=== PATIENT | female | born 1955 | race Caucasian/White ===

== ENCOUNTER 2019-05-29 14:53 | Emergency (ER) | payer BC, OTHER ==
--- OUTSIDE RECORDS SUMMARY | 2019-05-29 14:56 | XMS REPORT ---
:1955 [facility] [address] [place] [id number] Care Team Providers Name Role Phone Unavailable Unavailable Unavailable Problems This patient has no known problems. Allergies, Adverse Reactions, Alerts This patient has no known allergies or adverse reactions. Medications This patient has no known medications. Results Test Description Test Time Test Comments Text Results Atomic Results Result Comments CT NECK SOFT TIS 2018-04-04 13:03:41 CLINICAL INDICATION: E21.2 Other WO/W hyperparathyroidismMODALITY: [employer] [address] (Iterative dose reduction technique is used).TECHNIQUE: Noncontrast and contrast enhanced helical scans through the neck from the skull base to the thoracic inlet were performed. IV contrast, 90 ml optiray 350 was administered.IMPRESSION:1. Small ovoid hypervascular nodule in the right paratracheal region just inferior and posterior to the inferior edge of the right lobe of the thyroid suggesting a parathyroid adenoma.2. Small right lobe of thyroid nodule measuring 5 mm.3. Mild medial position of the left aryepiglottic fold and enlargement of the left piriform sinus which can be seen with left vocal cord weakness or paralysis. Correlation with direct visualization is suggested.4. Atheromatous plaque of the left internal carotid artery without evidence of hemodynamically significant stenosis.FINDINGS:COMPARISON: NoneThe release coordinator spaces, parapharyngeal spaces, base of tongue, epiglottis, and pre-epiglottic are unremarkable. Mild medial position of the left aryepiglottic fold suggesting mild left vocal cord paralysis in the proper clinical setting.The major salivary glands including parotid and submandibular glands are normal.There is a right lobe of thyroid nodule measuring 6 mm.There is a small nodule measuring 5 x 3 x 8 mm in the right paratracheal region along the posterior margin of the right lobe of the thyroid which may represent a parathyroid adenoma in the proper clinical setting.There is no significant adenopathy in the neck, supraclavicular fossa, axilla or superior mediastinum.Anterior plate and screws within intervertebral disc spacer at C5-6.The visualized skull base is intact. Posterior atelectasis of the lung apices appearThe visualized paranasal sinuses and mastoid air cells are clear.PQRS 436: [id number] (For official use only.)
--- NOTE | 2019-05-29 16:30 | RAD REPORT ---
EXAM DESCRIPTION: RAD - Humerus Left - 05/29/2019 4:18 pm CLINICAL HISTORY: Left arm pain FINDINGS: No fracture is seen. No bony abnormality noted
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
[2019-05-29 17:51] VITALS: TEMP 97.3; O2SAT 100
[2019-05-29 17:52] VITALS: BP 130/72
== END 2019-05-29 16:54 | disposition home or self-care (01) ==
LOC: ER 14:53
DX: M79.622 Pain in left upper arm (principal)
CPT/HCPCS: 99283

== ENCOUNTER 2022-08-27 11:45 | Emergency (ER) | payer OTHER, MEDICARE ==
--- OUTSIDE RECORDS SUMMARY | 2022-08-27 11:50 | XMS REPORT | Continuity of Care Document ---
:1955 Author Organization [facility] t Address [address] [place] [address] Care Team Providers Name Role Phone Davian Hopson Primary Care Physician Lina HERNANDEZ, Yudith Camargo Attending Clinician Unavailable SEEMA NICK Attending Clinician Unavailable Jaylyn Howard Attending Clinician Seema Vora Attending Clinician Karen Hall Attending Clinician Doctor Unassigned, [place] Attending Clinician Unavailable KAREN SU Attending Clinician Unavailable ZEFERINO VINSON Attending Clinician Unavailable ERIC JOSE Attending Clinician Unavailable AVERY CARIAS Attending Clinician Unavailable Payers Payer Name Policy Type Policy Number Effective Date Expiration Date S bro[place] [facility] - [id number] 2018 00:00:00 OUT OF STATE Problems Condition Condition Condition Status Onset Resolution Last Treating Co mments Source Name Details Category Date Date Treatment Clinician Date 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 00:00: Hospita 00 l Left upper Left upper Disease Active M ethodi quadrant quadrant 2-07 st abdominal abdominal 00:00: Hosp sammy tenderness tenderness 00 l Chest pain Chest pain Disease Active 2013- U nivers 2-10 ity of 00:00: [address] Depression Depression Disease Active U nivers ity [facility] Hypothyroi Hypothyroi Disease Active U nivers dism dism ity of [facility] Hyperlipid Hyperlipid Disease [facility] Allergies, Adverse Reactions, Alerts Allergy Allergy Status Severity Reaction(s) Onset Inactive Treating Comm ents Source Name Type Date Date Clinician NO KNOWN Drug Active Univers ALLERGIE Class ity of [facility] Family History Family Member Diagnosis Comments Start Date Stop Date Source Natural father Heart disease [facility] Natural mother Arthritis [facility] Natural mother Heart disease [facility] Natural sister Breast cancer [facility] Social History Social Habit Start Date Stop Date Quantity Comments Source Exposure to Not sure [facility]-CoV-2 [facility] (event) Branch History SDHI Yarsanism Alcohol Std Hospital Drinks History SDHI Yarsanism Alcohol Binge Hospital Tobacco use and 2020-05-19 2020-05-19 Smokeless tobacco [facility] exposure 00:00:00 00:00:00 non-user Hospital Alcohol intake 2020-05-19 2020-05-19 Current Yarsanism 00:00:00 00:00:00 non-drinker of Hospital alcohol (finding) History SDOH 2018-09-05 2018-09-05 1 Yarsanism Alcohol Frequency 00:00:00 00:00:00 Hospita l Sex Ass[birth year] At [birth year] Yarsanism 00:00:00 00:00:00 Hospital Smoking Status Start Date Stop Date Source Never smoker [facility] Medications Ordered Filled Start Stop Current Ordering Indication Dosage Frequency Signature Comments Components Source Medication Medication Date Date Medication? Clinician (SIG) Name Name albuterol 2021- No [id number] 2.5mg Inhale 3 Univers 2.5 mg /3 1-20 02-20 mL every 4 ity of mL (0.083 00:00: 05:59 (four) [place] %) 00 :00 hours as Medical nebulizer needed for Bran ch solution Wheezing, Shortness of Breath or Chest tightness for up to 30 days. albuterol 2021- No [id number] 2.5mg Inhale 3 Univers 2.5 mg /3 1-20 02-20 mL every 4 ity of mL (0.083 00:00: 05:59 (four) [place] %) 00 :00 hours as Medical nebulizer needed for Bran ch solution Wheezing, Shortness of Breath or Chest tightness for up to 30 days. albuterol 2021- No [id number] 2.5mg Inhale 3 Univers 2.5 mg /3 1-20 02-20 mL every 4 ity of mL (0.083 00:00: 05:59 (four) [place] %) 00 :00 hours as Medical nebulizer needed for Bran ch solution Wheezing, Shortness of Breath or Chest tightness for up to 30 days. albuterol 2021- No [id number] 2{puff} Inhale 2 Univers 90 1-20 -31 Puffs ity of mcg/actuati 00:00: 05:59 [place] 6 [place] inhaler 00 :00 (six) Medical hours as Branch needed for Wheezing or Shortness of Breath for up to 10 days. albuterol 2021- No [id number] 2{puff} Inhale 2 Univers 90 1-20 -31 Puffs ity of mcg/actuati 00:00: 05:59 [place] 6 [place] inhaler 00 :00 (six) Medical hours as Branch needed for Wheezing or Shortness of Breath for up to 10 days. albuterol 2021- No [id number] 2{puff} Inhale 2 Univers 90 1-20 -31 Puffs ity of mcg/actuati 00:00: 05:59 every 6 [place] inhaler 00 :00 (six) Medical hours as Branch needed for Wheezing or Shortness of Breath for up to 10 days. METHYLPREDN 2021- No Take by Un oswald ISOLONE 1-10 01-10 mouth. ity of (MEDROL 14:39: 00:00 Indication [place] as ORAL) 29 :00 s: dose Medical pack, for Branch back pain/blugi ng discs ESTRADIOL Yes Take by Unive rs ORAL 1-10 mouth. ity of 14:25: [place] 52 Medical Branch escitalopra Yes 20mg Take 20 mg Univers m oxalate 1-10 by mouth ity of (LEXAPRO) 14:25: daily. [place] 20 mg 52 Medical tablet Branch levothyroxi Yes 25ug Take 25 Uni vers ne 1-10 mcg by ity of (UNITHROID) 14:25: mouth [place] 25 mcg 52 every Medical tablet morning. Branch estradioL 0 Yes 1{patch Apply 1 Un oswald 0.025 mg/24 1-10 } Patch to ity of hr patch 14:25: skin 2 [place] [address] (two) Medical times per Branch week. ESTRADIOL 0 Yes Take by Unive rs ORAL 1-10 mouth. ity of 14:25: [place] [address] Medical [place] escitalopra Yes 20mg Take 20 mg Univers m oxalate 1-10 by mouth ity of (LEXAPRO) 14:25: daily. [place] 20 mg 52 Medical tablet Branch levothyroxi Yes 25ug Take 25 Uni vers ne 1-10 mcg by ity of (UNITHROID) 14:25: mouth [place] 25 mcg 52 every Medical tablet morning. Branch estradioL Yes 1{patch Apply 1 Un oswald 0.025 mg/24 1-10 } Patch to ity of hr patch 14:25: skin 2 [place] [address] (two) Medical times per Branch week. ESTRADIOL 0 Yes Take by Unive rs ORAL 1-10 mouth. ity of 14:25: [address] escitalopra Yes 20mg Take 20 mg Univers m oxalate 1-10 by mouth ity of (LEXAPRO) 14:25: daily. [place] 20 mg 52 Medical tablet Branch levothyroxi Yes 25ug Take 25 Uni vers ne 1-10 mcg by ity of (UNITHROID) 14:25: mouth [place] 25 mcg 52 every Medical tablet morning. Branch estradioL Yes 1{patch Apply 1 Un oswald 0.025 mg/24 1-10 } Patch to ity of hr patch 14:25: skin 2 [place] [address] (two) Medical times per Branch week. ESTRADIOL 0 Yes Take by Unive rs ORAL 1-10 mouth. ity of 14:25: [place] [address] Medical [place] escitalopra Yes 20mg Take 20 mg Univers m oxalate 1-10 by mouth ity of (LEXAPRO) 14:25: daily. [place] 20 mg 52 Medical tablet Branch levothyroxi Yes 25ug Take 25 Uni vers ne 1-10 mcg by ity of (UNITHROID) 14:25: mouth [place] 25 mcg 52 every Medical tablet morning. Branch estradioL Yes 1{patch Apply 1 Un oswald 0.025 mg/24 1-10 } Patch to ity of hr patch 14:25: skin 2 [place] [address] (two) Medical times per Branch week. ESTRADIOL Yes Take by Unive rs ORAL 1-10 mouth. ity of 14:25: [address] escitalopra Yes 20mg Take 20 mg Univers m oxalate 1-10 by mouth ity of (LEXAPRO) 14:25: daily. [place] 20 mg 52 Medical tablet [place] levothyroxi Yes 25ug Take 25 Uni vers ne 1-10 mcg by ity of (UNITHROID) 14:25: mouth [place] 25 mcg 52 every Medical tablet morning. Branch estradioL Yes 1{patch Apply 1 Un oswald 0.025 mg/24 1-10 } Patch to ity of hr patch 14:25: skin 2 [place] [address] (two) Medical times per Branch week. ESTRADIOL Yes Take by [employer] rs ORAL 1-10 mouth. ity of 14:25: [address] escitalopra Yes 20mg Take 20 mg Univers m oxalate 1-10 by mouth ity of (LEXAPRO) 14:25: daily. [place] 20 mg 52 Medical tablet Branch levothyroxi Yes 25ug Take 25 Uni vers ne 1-10 mcg by ity of (UNITHROID) 14:25: mouth [place] 25 mcg 52 every Medical tablet morning. Branch estradioL Yes 1{patch Apply 1 Un oswald 0.025 mg/24 1-10 } Patch to ity of hr patch 14:25: skin 2 [place] [address] (two) Medical times per Branch week. methylPREDN Yes [id number] Take by Univers ISolone 4 1-10 mouth ity of mg tablets 00:00: [place]-INSTRU [place] 00 CTIONS. Medical follow Branch package directions cyclobenzap Yes [id number] 10mg Take 1 Univers rine 10 mg 1-10 tablet by ity of tablet 00:00: mouth at [place] 00 bedtime. Medical Branch methylPREDN 2021-0 Yes [id number] Take by Univers ISolone 4 1-10 mouth ity of mg tablets 00:00: SEE-INSTRU [place] 00 CTIONS. Medical follow Branch package directions cyclobenzap 2021-0 Yes [id number] 10mg Take 1 Univers rine 10 mg 1-10 tablet by ity of tablet 00:00: mouth at [place] 00 bedtime. Medical Branch methylPREDN 2021-0 Yes [id number] Take by Univers ISolone 4 1-10 mouth ity of mg tablets 00:00: SEE-INSTRU [place] 00 CTIONS. Medical follow Branch package directions cyclobenzap 2021-0 Yes [id number] 10mg Take 1 Univers rine 10 mg 1-10 tablet by ity of tablet 00:00: mouth at [place] 00 bedtime. Medical Branch methylPREDN 2021-0 Yes [id number] Take by Univers ISolone 4 1-10 mouth ity of mg tablets 00:00: SEE-INSTRU [place] 00 CTIONS. Medical follow Branch package directions cyclobenzap 2021-0 Yes [id number] 10mg Take 1 Univers rine 10 mg 1-10 tablet by ity of tablet 00:00: mouth at [place] 00 bedtime. Medical Branch methylPREDN 2021-0 Yes [id number] Take by Univers ISolone 4 1-10 mouth ity of mg tablets 00:00: SEE-INSTRU [place] 00 CTIONS. Medical follow Branch package directions cyclobenzap 2021-0 Yes [id number] 10mg Take 1 Univers rine 10 mg 1-10 tablet by ity of tablet 00:00: mouth at [place] 00 bedtime. Medical Branch methylPREDN 2021-0 Yes [id number] Take by Univers ISolone 4 1-10 mouth ity of mg tablets 00:00: SEE-INSTRU [place] 00 CTIONS. Medical follow Branch package directions cyclobenzap 2021-0 Yes [id number] 10mg Take 1 Univers rine 10 mg 1-10 tablet by ity of tablet 00:00: mouth at [place] 00 bedtime. Medical Branch escitalopra 2019-07 Yes 40mg QD Take 40 mg Methodi m (LEXAPRO) 1-[address] 20 MG 10:34: daily. Hospita tablet 10 l progesteron 2019-07 Yes 100mg QD Take 100 M ethodi e 1-[address] (PROMETRIUM 10:34: mouth Hospi ta ) 100 MG 10 daily. l capsule estradiol 2019-07 Yes 1{patch Q72H Place 1 Me thodi (CLIMARA) 1-11 } patch on st 0.1 mg/24 10:34: the skin Hosp sammy hr 10 every l third day. levothyroxi 2019-07 Yes 137ug QD Take 137 M ethodi ne 0-[address] (SYNTHROID) 00:00: mouth Hospi ta 137 mcg 00 daily. l tablet methylPREDN 2021- No Take by oswald ISolone 11-12 01-10 mouth ity of (MEDROL, 00:00: 00:00 [place]IN[place] JESSY,) 4 mg 00 :00 CTIONS. Medica l tablets follow Branch package directions diclofenac Yes [id number] 75mg Take 1 Univers 75 mg EC 3-21 9102 tablet by ity of tablet 00:00: mouth (two) Medical times Branch daily with meals. diclofenac Yes [id number] 75mg Take 1 Univers 75 mg EC 3-21 9102 tablet by ity of tablet 00:00: mouth (two) Medical times Branch daily with meals. diclofenac Yes [id number] 75mg Take 1 Univers 75 mg EC 3-21 9102 tablet by ity of tablet 00:00: mouth 2 (two) Medical times Branch daily with meals. diclofenac Yes [id number] 75mg Take 1 Univers 75 mg EC 3-21 9102 tablet by ity of tablet 00:00: mouth 2 (two) Medical times Branch daily with meals. diclofenac Yes [id number] 75mg Take 1 Univers 75 mg EC 3-21 9102 tablet by ity of tablet 00:00: mouth 2 (two) Medical times Branch daily with meals. diclofenac Yes [id number] 75mg Take 1 Univers 75 mg EC 3-21 9102 tablet by ity of tablet 00:00: mouth 2 (two) Medical times Branch daily with meals. DULOXETINE 2017-07 Yes Take by Univ ers HCL - mouth. ity of (CYMBALTA 13:26: [place] ORAL) 46 Medical Branch ATORVASTATI 2017-07 Yes Take by Uni vers N CALCIUM 08-03 mouth. ity of (ATORVASTAT 13:26: [place] IN ORAL) 46 Medical Branch ALPRAZOLAM 2017-07 Yes Take by Univ ers (XANAX 08-03 mouth as ity of ORAL) 13:26: needed. [place] [address] Medical Branch BISOPROLOL 2017-07 Yes Take by Univ ers FUMARATE/HC 08-03 mouth as ity of TZ (ZIAC 13:26: needed [place] ORAL) 46 (shortness Medical of Branch breath). AZITHROMYCI 2017-07 Yes Take by Uni vers N 08-03 mouth. ity of (ZITHROMAX 13:26: Indication [place] Z-JESSY ORAL) 46 s: Medical sinusitis Branch ALBUTEROL 2017-07 Yes Inhale. Unive rs INHALE 08-03 ity of 13:26: [place] Medical Branch progesteron 2017-07 Yes 100mg Take 100 U nivers e 100 mg 08-03 mg by ity of capsule 13:26: mouth [place] 46 daily. Medical Branch thyroid 2017-07 Yes 60mg Take 60 mg Univ ers (ARMOUR 08-03 by mouth ity of THYROID) 60 13:26: every [place] mg tablet 46 morning. Medica l Branch rosuvastati 2017-07 Yes 10mg Take 10 mg Univers n 10 mg 08-03 by mouth ity of tablet 13:26: at [place] 46 bedtime. Medical Branch DULOXETINE 2017-07 Yes Take by Univ ers HCL 08-03 mouth. ity of (CYMBALTA 13:26: [place] ORAL) 46 Medical Branch ATORVASTATI 2017-07 Yes Take by Uni vers N CALCIUM 08-03 mouth. ity of (ATORVASTAT 13:26: [place] IN ORAL) 46 Medical Branch ALPRAZOLAM 2017-07 Yes Take by Univ ers (XANAX 08-03 mouth as ity of ORAL) 13:26: needed. [place] [address] Medical Branch BISOPROLOL 2017-07 Yes Take by Univ ers FUMARATE/HC 08-03 mouth as ity of TZ (ZIAC 13:26: needed [place] ORAL) 46 (shortness Medical of Branch breath). AZITHROMYCI 2017-07 Yes Take by Uni vers N 08-03 mouth. ity of (ZITHROMAX 13:26: Indication [place] Z-JESSY ORAL) 46 s: Medical sinusitis Branch ALBUTEROL 2017-07 Yes Inhale. Unive rs INHALE 08-03 ity of 13:26: [place] 46 Medical Branch progesteron 2017-07 Yes 100mg Take 100 U nivers e 100 mg 1-26 mg by ity of capsule 13:26: mouth [place] 46 daily. Medical Branch thyroid 2017-07 Yes 60mg Take 60 mg Univ ers (ARMOUR 08-03 by mouth ity of THYROID) 60 13:26: every [place] mg tablet 46 morning. Medica l Branch rosuvastati 2017-07 Yes 10mg Take 10 mg Univers n 10 mg 08-03 by mouth ity of tablet 13:26: at [place] 46 bedtime. Medical Branch DULOXETINE 2017-07 Yes Take by Univ ers HCL 08-03 mouth. ity of (CYMBALTA 13:26: [place] ORAL) 46 Medical Branch ATORVASTATI 2017-07 Yes Take by Uni vers N CALCIUM 08-03 mouth. ity of (ATORVASTAT 13:26: [place] IN ORAL) 46 Medical Branch ALPRAZOLAM 2017-07 Yes Take by Univ ers (XANAX 08-03 mouth as ity of ORAL) 13:26: needed. [place] 46 Medical Branch BISOPROLOL 2017-07 Yes Take by Univ ers FUMARATE/HC 08-03 mouth as ity of TZ (ZIAC 13:26: needed [place] ORAL) 46 (shortness Medical of Branch breath). AZITHROMYCI 2017-07 Yes Take by Uni vers N 08-03 mouth. ity of (ZITHROMAX 13:26: Indication [place] Z-JESSY ORAL) 46 s: Medical sinusitis Branch ALBUTEROL 2017-07 Yes Inhale. Unive rs INHALE 08-03 ity of 13:26: [place] 46 Medical Branch progesteron 2017-07 Yes 100mg Take 100 U nivers e 100 mg 1-26 mg by ity of capsule 13:26: mouth [place] 46 daily. Medical Branch thyroid 2017-07 Yes 60mg Take 60 mg Univ ers (ARMOUR 08-03 by mouth ity of THYROID) 60 13:26: every [place] mg tablet 46 morning. Medica l Branch rosuvastati 2017-07 Yes 10mg Take 10 mg Univers n 10 mg 08-03 by mouth ity of tablet 13:26: at [place] [address] bedtime. Medical Branch DULOXETINE 2017-07 Yes Take by Univ ers HCL 08-03 mouth. ity of (CYMBALTA 13:26: [place] ORAL) 46 Medical Branch ATORVASTATI 2017-07 Yes Take by Uni vers N CALCIUM 08-03 mouth. ity of (ATORVASTAT 13:26: [place] IN ORAL) 46 Medical Branch ALPRAZOLAM 2017-07 Yes Take by Univ ers (XANAX 08-03 mouth as ity of ORAL) 13:26: needed. [place] [address] Medical Branch BISOPROLOL 2017-07 Yes Take by Univ ers FUMARATE/HC 08-03 mouth as ity of TZ (ZIAC 13:26: needed [place] ORAL) 46 (shortness Medical of Branch breath). AZITHROMYCI 2017-07 Yes Take by Uni vers N 08-03 mouth. ity of (ZITHROMAX 13:26: Indication [place] Z-JESSY ORAL) 46 s: Medical sinusitis Branch ALBUTEROL 2017-07 Yes Inhale. Unive rs INHALE 08-03 ity of 13:26: [place] Medical Branch progesteron 2017-07 Yes 100mg Take 100 U nivers e 100 mg -26 mg by ity of capsule 13:26: mouth [place] daily. Medical Branch thyroid 2017-07 Yes 60mg Take 60 mg Univ ers (ARMOUR 08-03 by mouth ity of THYROID) 60 13:26: every [place] mg tablet 46 morning. Medica l Branch rosuvastati 2017-07 Yes 10mg Take 10 mg Univers n 10 mg 08-03 by mouth ity of tablet 13:26: at [place] [address] bedtime. Medical Branch DULOXETINE 2017-07 Yes Take by Univ ers HCL 08-03 mouth. ity of (CYMBALTA 13:26: [place] ORAL) 46 Medical Branch ATORVASTATI 2017-07 Yes Take by Uni vers N CALCIUM 08-03 mouth. ity of (ATORVASTAT 13:26: [place] IN ORAL) 46 Medical Branch ALPRAZOLAM 2017-07 Yes Take by Univ ers (XANAX 08-03 mouth as ity of ORAL) 13:26: needed. [place] [address] Medical Branch BISOPROLOL 2017-07 Yes Take by Univ ers FUMARATE/HC 08-03 mouth as ity of TZ (ZIAC 13:26: needed [place] ORAL) 46 (shortness Medical of Branch breath). AZITHROMYCI 2017-07 Yes Take by Uni vers N - mouth. ity of (ZITHROMAX 13:26: Indication [place] Z-JESSY ORAL) 46 s: Medical sinusitis Branch ALBUTEROL 2017-07 Yes Inhale. Unive rs INHALE 08-03 ity of 13:26: [place] 46 Medical Branch progesteron 2017-07 Yes 100mg Take 100 U nivers e 100 mg 1-26 mg by ity of capsule 13:26: mouth [place] 46 daily. Medical Branch thyroid 2017-07 Yes 60mg Take 60 mg Univ ers (ARMOUR 08-03 by mouth ity of THYROID) 60 13:26: every [place] mg tablet 46 morning. Medica l Branch rosuvastati 2017-07 Yes 10mg Take 10 mg Univers n 10 mg 08-03 by mouth ity of tablet 13:26: at [place] 46 bedtime. Medical Branch DULOXETINE 2017-07 Yes Take by Univ ers HCL 08-03 mouth. ity of (CYMBALTA 13:26: [place] ORAL) 46 Medical Branch ATORVASTATI 2017-07 Yes Take by Uni vers N CALCIUM 08-03 mouth. ity of (ATORVASTAT 13:26: [place] IN ORAL) 46 Medical Branch ALPRAZOLAM 2017-07 Yes Take by Univ ers (XANAX 08-03 mouth as ity of ORAL) 13:26: needed. [place] 46 Medical Branch BISOPROLOL 2017-07 Yes Take by Univ ers FUMARATE/HC 08-03 mouth as ity of TZ (ZIAC 13:26: needed [place] ORAL) 46 (shortness Medical of Branch breath). AZITHROMYCI 2017-07 Yes Take by Uni vers N - mouth. ity of (ZITHROMAX 13:26: Indication [place] Z-JESSY ORAL) 46 s: Medical sinusitis Branch ALBUTEROL 2017-07 Yes Inhale. Unive rs INHALE 08-03 ity of 13:26: [place] 46 Medical Branch progesteron 2017-07 Yes 100mg Take 100 U nivers e 100 mg 1-26 mg by ity of capsule 13:26: mouth [place] 46 daily. Medical Branch thyroid 2017-07 Yes 60mg Take 60 mg Univ ers (ARMOUR 1-26 by mouth ity of THYROID) 60 13:26: every [place] mg tablet 46 morning. Medica l Branch rosuvastati 2017- Yes 10mg Take 10 mg Univers n 10 mg 1-26 by mouth ity of tablet 13:26: at [place] 46 bedtime. Medical Branch acetaminoph Yes 1{tbl} Take 1 Un oswald en-codeine 8-23 tablet by ity of 300-30 mg 00:00: mouth [place] tablet 00 every 4 Medical (four) Branch hours as needed for Pain (scale 4-6). acetaminoph Yes 1{tbl} Take 1 Un oswald en-codeine 8-23 tablet by ity of 300-30 mg 00:00: mouth [place] tablet 00 every 4 Medical (four) Branch hours as needed for Pain (scale 4-6). acetaminoph Yes 1{tbl} Take 1 Un oswald en-codeine 8-23 tablet by ity of 300-30 mg 00:00: mouth [place] tablet 00 every 4 Medical (four) Branch hours as needed for Pain (scale 4-6). acetaminoph Yes 1{tbl} Take 1 Un oswald en-codeine 8-23 tablet by ity of 300-30 mg 00:00: mouth [place] tablet 00 every 4 Medical (four) Branch hours as needed for Pain (scale 4-6). acetaminoph Yes 1{tbl} Take 1 Un oswald en-codeine 8-23 tablet by ity of 300-30 mg 00:00: mouth [place] tablet 00 every 4 Medical (four) Branch hours as needed for Pain (scale 4-6). acetaminoph Yes 1{tbl} Take 1 Un oswald en-codeine 8-23 tablet by ity of 300-30 mg 00:00: mouth [place] tablet 00 every 4 Medical (four) Branch hours as needed for Pain (scale 4-6). aspirin 81 2013-07 Yes 81mg Take 1 Tab U nivers mg chewable 2-11 by mouth ity of tablet 00:00: daily. Medical Branch aspirin 81 2013-07 Yes 81mg Take 1 Tab U nivers mg chewable 2-11 by mouth ity of tablet 00:00: daily. Medical Branch aspirin 81 2014-1 Yes 81mg Take 1 Tab U nivers mg chewable 2-11 by mouth ity of tablet 00:00: daily. [address] aspirin 81 2013-07 Yes 81mg Take 1 Tab U nivers mg chewable 2-11 by mouth ity of tablet 00:00: daily. [address] aspirin 81 2013-07 Yes 81mg Take 1 Tab U nivers mg chewable 2-11 by mouth ity of tablet 00:00: daily. [address] aspirin 81 2013-07 Yes 81mg Take 1 Tab U nivers mg chewable 2-11 by mouth ity of tablet 00:00: daily. [address] Vital Signs Vital Name Observation Time Observation Value Comments Source Systolic blood 2021-07-28 18:24:00 117 mm[Hg] Univer sity of [facility] Diastolic blood 2021-07-28 18:24:00 75 mm[Hg] [facility] Heart rate 2021-07-28 18:24:00 85 /min [facility] Body temperature 2021-07-28 18:24:00 37.11 [facility] Respiratory rate 2021-07-28 18:24:00 18 /min [facility] Body height 2021-07-28 18:24:00 162.6 cm [facility] Body weight 2021-07-28 18:24:00 69.219 kg [facility] BMI 2021-07-28 18:24:00 26.19 kg/m2 [facility] Oxygen saturation in 2021-07-28 18:24:00 99 /min [facility] Arterial blood by [facility] [place] [facility] Pulse oximetry Branch Systolic blood 2021-07-18 20:25:00 114 mm[Hg] Univer sity of [facility] Diastolic blood 2021-07-18 20:25:00 70 mm[Hg] Unive rsity of [facility] Heart rate 2021-07-18 20:25:00 70 /min [facility] Body temperature 2021-07-18 20:25:00 36.72 [facility] Respiratory rate 2021-07-18 20:25:00 16 /min [facility] Body height 2021-07-18 20:25:00 162.6 cm [facility] Body weight 2021-07-18 20:25:00 68.947 kg [facility] BMI 2021-07-18 20:25:00 26.09 kg/m2 [facility] Oxygen saturation in 2021-07-18 20:25:00 97 /min [facility] blood by [facility] [place] [facility] Pulse oximetry Branch Procedures Procedure Date / Time Performed Performing Clinician [facility] ASSIGNMENT OF BENEFITS 2021-07-28 18:11:36 Doctor Unassigned, No [facility] Plan of Care Planned Activity Planned Date Details Comments Source Future Scheduled 2022-08-15 COVID-19 VACCINE (#1) [facility] Test 10:28:33 [code = COVID-19 VACCINE (#1)] Future Scheduled 2022-08-15 Hepatitis C screening [facility] Test 10:28:33 (procedure) [code = 826265243] Future Scheduled 2022-08-15 BREAST CANCER [facility] Test 10:28:33 SCREENING [code = BREAST CANCER SCREENING] Future Scheduled 2022-08-15 COLONOSCOPY SCREENING [facility] Test 10:28:33 [code = COLONOSCOPY SCREENING] Future Scheduled 2022-08-15 SHINGLES VACCINES (1 [facility] Test 10:28:33 of 2) [code = SHINGLES VACCINES (1 of 2)] Future Scheduled 2022-08-15 65+ [facility]AL [facility] Test 10:28:33 VACCINE (1 - PCV) [code = 65+ PNEUMOCOCCAL VACCINE (1 - PCV)] Future Scheduled 2022-08-15 INFLUENZA VACCINE [facility] Test 10:28:33 [code = INFLUENZA VACCINE] Encounters Start End Encounter Admission Attending Care Care Encounter Source Date/Time Date/Time Type Type Clinicians Facility Department ID 2021-07-30 2021-07-30 Letter [facility] [place] [id number] Univers 00:00:00 00:00:00 (Out) Yudith BOYER [id number] it y [facility] [id number] Horace as [id number] [facility] 019 Branch 2021-07-28 2021-07-28 Outpatient R [facility] [id number] Univers 12:00:00 13:41:44 SEEMA ity of [facility] 2021-07-28 2021-07-28 Urgent Jaylyn Fulton [facility] [id number] Univers 12:00:00 12:20:00 Care Anatoliy Seema HEALTH [id number] ity of [place] [id number] Horace as KAMRON?BLEA [id number] [facility] [address] [place] MEDICAL OFFICE [facility] 2021-07-28 2021-07-[address] [facility] [id number] Univers 00:00:00 00:00:00 Karen HEALTH [id number] i ty [facility] [id number] Horace as KAMRON?BLEA [id number] [facility] 370 [facility] 2021-07-28 2021-07-28 Orders Doctor TY [id number] Univers 00:00:00 00:00:00 Only Unassigned, ROSALIND [id number] ity of [place] [facility] [id number] Horace as [id number] [address] 2021-07-18 2021-07-18 Outpatient [facility] [id number] Univers 14:39:29 23:59:00 KAREN leung o f [facility] 2021-07-18 2021-07-18 [facility] [id number] Univers 14:39:29 23:59:00 Encounter [facility] [id number] [facility] [id number] Horace as KAMRON?BLEA [phone] [facility] 808 [facility] OFFICE [facility] 2021-07-18 2021-07-18 Urgent Karen Su [facility] [id number] Univers 14:00:00 14:20:00 Care Seema Nick HEALTH [id number] ity of [place] [id number] Horace as KAMRON?BLEA [id number] Nc celestino [address] MEDICAL OFFICE [facility] 2020-05-19 2020-05-19 Outpatient KAREL, [facility] [id number] [address] [place] 00:00:00 00:00:00 ZEFERINO Dickson Method i 2020-05-19 2020-05-19 Outpatient KAREL, [facility] [id number] [address] [place] 00:00:00 00:00:00 ZEFERINO Conrad [facility] 2019-11-13 2019-11-13 Outpatient Sylvia JOSE [facility] [id number] Univers 13:00:00 13:00:00 ERIC [facility] 2019-06-20 2019-06-20 Outpatient AVERY PETERSON [facility] [id number] [facility] 08:54:20 08:56:00 [facility] Results Test Description Test Time Test Comments Results Result Sour e Comments CT NECK SOFT TIS 2018-04-04 CLINICAL INDICATION: WO/W 13:03:41 E21.2 Other hyperparathyroidismMO DALITY: [employer] [address] (Iterative dose reduction technique is used).TECHNIQUE: Noncontrast and contrast enhanced helical scans through the neck from the skull base to the thoracic inlet were performed. IV contrast, 90 ml optiray 350 was administered.IMPRESSI ON:1. Small ovoid hypervascular nodule in the right [...] carotid artery without evidence of hemodynamically significant stenosis.FINDINGS:COM PARISON: NoneThe dairy husbandman spaces, parapharyngeal spaces, base of tongue, epiglottis, [...]
[2022-08-27] MEDS ORDERED: ONDANSETRON 4 MG/2 ML VIAL ONE (12:24)
[2022-08-27 12:36] LABS: Absolute Lymphocytes (CBC) 1.1 K/uL (0.7-4.9); Hematocrit 39.5 % (36.0-45.0); Lymphocytes % 20.8 % (15.3-44.8); MCV 87.8 fL (80-100); MPV 8.1 fL (7.6-11.3); RBC Red Blood Cell Count 4.49 M/uL (3.86-4.86)
--- NOTE | 2022-08-27 12:48 | RAD REPORT ---
EXAM DESCRIPTION: CT - Head Brain Wo Cont - 08/27/2022 12:35 pm CLINICAL HISTORY: Dizziness COMPARISON: none TECHNIQUE: Computed axial tomography of the head was obtained. IV contrast was not requested. All CT scans are performed using dose optimization technique as appropriate and may include automated exposure control or mA/KV adjustment according to patient size. FINDINGS: An intracranial bleed is not seen The ventricles are normal in caliber No significant hypodense areas within the brain visualized No extra-axial fluid collection is noted. Fluid within the sinuses/ mastoids is not seen IMPRESSION: No acute intracranial abnormality is seen If patient's symptoms persist MRI of the brain would be recommended
[2022-08-27 12:57] LABS: BUN Blood Urea Nitrogen 18 mg/dL (7-18); Bicarbonate 26 mmol/L (21-32); Glomerular Filtration Rate 61 ml/min (=/>90); Glucose Level 95 mg/dL (74-106); Potassium 4.2 mmol/L (3.5-5.1); Sodium Level 136 mmol/L (136-145)
[2022-08-27 12:58] LABS: Troponin High Sensitivity < 3.0 pg/mL (<58.9)
--- NOTE | 2022-08-27 13:11 | ER ---
Nurse's Notes [facility] Name: Bailey Patton Age: 66 yrs Sex: Female : 1955 Arrival Date: 08/27/2022 Time: 11:48 Bed 15 Private MD: Davian Hopson Diagnosis: Concussion without loss of consciousness Presentation: 08/27 12:03 Chief complaint: Patient states: "I hit my head on the shower door on Sunday but since aa5 yesterday I've been dizzy and nauseated". Denies LOC, pt's friend states "she is not really making any sense". Coronavirus screen: At this time, the client does not indicate any symptoms associated with coronavirus-19. Ebola Screen: Patient denies travel to an Ebola-affected area in the 21 days before illness onset. Initial Sepsis Screen: Does the patient meet any 2 criteria? No. Patient's initial sepsis screen is negative. Does the patient have a suspected source of infection? No. Patient's initial sepsis screen is negative. Risk Assessment: Do you want to hurt yourself or someone else? Patient reports no desire to harm self or others. 12:03 Method Of Arrival: Ambulatory aa5 12:03 Acuity: VI 2 aa5 12:03 Onset of symptoms was August 26, 2022. aa5 Historical: - Allergies: 12:04 No Known Allergies; aa5 - Home Meds: 12:04 lexapro 40mg [Active]; levothyroxine 75 mcg cap 1 cap once daily [Active]; estradiol aa5 transdermal [Active]; Wellbutrin Oral [Active]; progesterone [Active]; - PMHx: 12:04 mitral valve prolapse; Depressive disorder; Hypothyroidism; aa5 - Immunization history:: Adult Immunizations unknown. - Social history:: Smoking status: Patient denies any tobacco usage or history of. Screenin:13 [facility] ED Fall Risk Assessment (Adult) History of falling in the last 3 months, kc6 including since admission No falls in past 3 months (0 pts) Confusion or Disorientation No (0 pts) Intoxicated or Sedated No (0 pts) Impaired Gait No (0 pts) Mobility Assist Device Used No (0 pt) Altered Elimination No (0 pt) Score/Fall Risk Level 0 - 2 = Low Risk Oriented to surroundings, Maintained a safe environment, Educated pt \\T\\ family on fall prevention, incl call for assistance when getting out of bed, Assessed \\T\\ reinforced patient's understanding of fall precautions, Hourly rounding (assess needs \\T\\ fall precautionary measures) done. Abuse screen: Denies threats or abuse. Denies injuries from another. Nutritional screening: No deficits noted. Tuberculosis screening: No symptoms or risk factors identified. Assessment: 12:11 General: Appears in no apparent distress. comfortable, Behavior is calm, cooperative, kc6 appropriate for age. Pain: Complains of pain in back of head Pain does not radiate. Pain currently is 5 out of 10 on a pain scale. Quality of pain is described as dull, Pain began 2-3 days ago. Is continuous, Also complains of no other associated symptoms. Neuro: Chowdhury Agitation-Sedation Scale (RASS): 0 - Alert and Calm Level of Consciousness is awake, alert, obeys commands, Oriented to person, place, time, situation, Appropriate for age Speech is normal, Pupils are PERRLA. Neuro: Reports dizziness, headache occipital area. Cardiovascular: Capillary refill < 3 seconds. Respiratory: Airway is patent Trachea midline Respiratory effort is even, unlabored, Respiratory pattern is regular, symmetrical. GI: Reports nausea, Patient currently denies diarrhea, vomiting. : No signs and/or symptoms were reported regarding the genitourinary system. EENT: No signs and/or symptoms were reported regarding the EENT system. Derm: No signs and/or symptoms reported regarding the dermatologic system. Skin is intact, Skin is pink, warm \\T\\ dry. Musculoskeletal: No signs and/or symptoms reported regarding the musculoskeletal system. Circulation, motion, and sensation intact. Capillary refill < 3 seconds, Range of motion: intact in all extremities. 13:11 Reassessment: Patient appears in no apparent distress at this time. No changes from kc6 previously documented assessment. Patient and/or family updated on plan of care and expected duration. Pain level reassessed. Patient is alert, oriented x 3, equal unlabored respirations, skin warm/dry/pink. 13:41 Reassessment: Patient appears in no apparent distress at this time. Patient and/or vg1 family updated on plan of care and expected duration. Pain level reassessed. Patient is alert, oriented x 3, equal unlabored respirations, skin warm/dry/pink. Vital Signs: 12:03 BP 108 / 54; Pulse 65; Resp 14 S; Temp 98.0(TE); Pulse Ox 100% on R/A; Weight 65.77 kg aa5 (R); Height 5 ft. 4 in. (162.56 cm) (R); 12:15 BP 127 / 66; Pulse 65; Resp 17 S; Pulse Ox 100% on R/A; kc6 13:41 BP 115 / 62; Pulse 70; Resp 16; Pulse Ox 99% on R/A; vg1 12:03 Body Mass Index 24.89 (65.77 kg, 162.56 cm) aa5 [place] Coma Score: 12:00 Eye Response: spontaneous(4). Verbal Response: oriented(5). Motor Response: obeys 7 commands(6). Total: 15. 12:03 Eye Response: spontaneous(4). Verbal Response: oriented(5). Motor Response: obeys aa5 commands(6). Total: 15. NIH Stroke Scale Scores: 12:00 NIHSS Score: 0 [facility] ED Course: 11:48 Patient arrived in ED. am2 11:49 Davian Hopson MD is Private Physician. am2 11:52 Shannen Arevalo FNP is [facility]. jh7 11:52 Jose Rafael Pike MD is Attending Physician. 7 12:03 Arm band placed on. aa5 12:04 Triage completed. aa5 12:08 Vianney Brenner, RN is Primary Nurse. kc6 12:13 Patient has correct armband on for positive identification. Bed in low position. Call kc light in reach. Side rails up X 1. Adult w/ patient. 12:30 Basic Metabolic Panel Sent. kc6 12:30 CBC with Diff Sent. kc6 12:30 Troponin HS Sent. kc6 12:31 Inserted saline lock: 20 gauge in right antecubital area, using aseptic technique. kc6 Blood collected. 13:10 Davian Hopson MD is Referral Physician. [facility] 13:41 No provider procedures requiring assistance completed. IV discontinued, intact, vg1 bleeding controlled, No redness/swelling at site. Pressure dressing applied. Administered Medications: 12:30 Drug: Zofran (Ondansetron) 4 mg Route: IVP; Site: right antecubital; kc6 13:30 Follow up: Response: No adverse reaction; Nausea is decreased kc6 Medication: 13:41 VIS not applicable for this client. vg1 Outcome: 13:10 Discharge ordered by . 7 13:41 Discharged to home ambulatory, with friend. vg1 13:41 Condition: good 13:41 Discharge instructions given to patient, family, Instructed on discharge instructions, follow up and referral plans. medication usage, Demonstrated understanding of instructions, follow-up care, medications, Prescriptions given X 1. 13:42 Patient left the ED. vg1 NIH Stroke Scale - NIH Stroke Score Date: 08/27/2022 Time: 12:00 Total Score = 0 1a. Level of Consciousness (LOC) - 0(Alert) 1b. Level of Consciousness (LOC) (Month \\T\\ Age) - 0(Both) 1c. LOC Commands (Open \\T\\ Closes Eyes/Director Of Purchasing) - 0(Both) 2. Best Gaze (Lateral Gaze Paresis) - 0(Normal) 3. Visual Field Loss - 0(No visual loss) 4. Facial Palsy - 0(Normal) 5a. Left Arm: Motor (10-second hold) - 0(No drift) 5b. Right Arm: Motor (10-second hold) - 0(No drift) 6a. Left Leg: Motor (5-second hold - always test supine) - 0(No drift) 6b. Right Leg: Motor (5-second hold - always test supine) - 0(No drift) 7. Limb Ataxia (finger/nose \\T\\ heel/[place] - test with eyes open) - 0(Absent) 8. Sensory Loss (pinprick arms/legs/face) - 0(Normal) 9. Best Language: Aphasia (description/naming/reading) - 0(No aphasia) 10. Dysarthria (speech clarity - read or repeat words) - 0(Normal) 11. Extinction and Inattention (visual/tactile/auditory/spatial/personal) - 0(No abnormality) Initials: [facility] Signatures: Ifemoa Gupta, RN RN aa5 Gabbie Tiwari Victoria, RN RN vg1 Shannen Arevalo, NOTEREADER NOTEREADER 7 Vianney Brenner, RN RN kc6
--- NOTE | 2022-08-27 13:11 | EDPHYS ---
Physician Documentation [facility] Name: Bailey Patton Age: 66 yrs Sex: Female : 1955 Arrival Date: 08/27/2022 Time: 11:48 Bed 15 Private MD: Davian Hopson ED Physician Jose Rafael Pike HPI: 08/27 12:00 This 66 yrs old Female presents to ER via Ambulatory with complaints of Head jh7 Injury-Adult - 2 days ago, Dizziness. 12:00 The patient or guardian reports pain. The complaints affect the Left parietal scalp. jh7 Context of injury: The problem was sustained at home, resulted from a direct blow, Shower door. Onset: The symptoms/episode began/occurred 2 day(s) ago. Associated signs and symptoms: Loss of consciousness: This patient did not experience any loss of consciousness. Pertinent positives: headache, nausea, Pertinent negatives: the patient has not experienced a loss of conciousness, patient denies any alcohol consumption, biting tongue, double vision, seizure, vomiting, weakness in extremities, generalized weakness. Patient reports that 2 days ago she hit her head on the shower door. Denies LOC or falling to the ground. Reports left parietal headache, dizziness, and mild nausea. No other symptoms at this time.. Historical: - Allergies: 12:04 No Known Allergies; aa5 - Home Meds: 12:04 lexapro 40mg [Active]; levothyroxine 75 mcg cap 1 cap once daily [Active]; estradiol aa5 transdermal [Active]; Wellbutrin Oral [Active]; progesterone [Active]; - PMHx: 12:04 mitral valve prolapse; Depressive disorder; Hypothyroidism; aa5 - Immunization history:: Adult Immunizations unknown. - Social history:: Smoking status: Patient denies any tobacco usage or history of. ROS: 12:00 Constitutional: Negative for fever, chills, and weight loss, Eyes: Negative for injury, jh7 pain, redness, and discharge, Neck: Negative for injury, pain, and swelling, Cardiovascular: Negative for chest pain, palpitations, and edema, Respiratory: Negative for shortness of breath, cough, wheezing, and pleuritic chest pain, Back: Negative for injury and pain, MS/Extremity: Negative for injury and deformity, Skin: Negative for injury, rash, and discoloration. 12:00 Abdomen/GI: Positive for nausea, Negative for abdominal pain, vomiting. 12:00 Neuro: Positive for dizziness, Negative for numbness, syncope, tingling, visual changes, weakness. 12:00 All other systems are negative. Exam: 12:00 Constitutional: This is a well developed, well nourished patient who is awake, alert, jh7 and in no acute distress. 12:00 Eyes: Pupils equal round and reactive to light, extra-ocular motions intact. Lids and lashes normal. Conjunctiva and sclera are non-icteric and not injected. Cornea within normal limits. Periorbital areas with no swelling, redness, or edema. ENT: Nares patent. No nasal discharge, no septal abnormalities noted. Tympanic membranes are normal and external auditory canals are clear. Oropharynx with no redness, swelling, or masses, exudates, or evidence of obstruction, uvula midline. Mucous membranes moist. Neck: Trachea midline, no thyromegaly or masses palpated, and no cervical lymphadenopathy. Supple, full range of motion without nuchal rigidity, or vertebral point tenderness. No Meningismus. Cardiovascular: Regular rate and rhythm with a normal S1 and S2. No gallops, murmurs, or rubs. Normal PMI, no JVD. No pulse deficits. Respiratory: Lungs have equal breath sounds bilaterally, clear to auscultation and percussion. No rales, rhonchi or wheezes noted. No increased work of breathing, no retractions or nasal flaring. Back: No spinal tenderness. No costovertebral tenderness. Full range of motion. Skin: Warm, dry with normal turgor. Normal color with no rashes, no lesions, and no evidence of cellulitis. MS/ Extremity: Pulses equal, no cyanosis. Neurovascular intact. Full, normal range of motion. 12:00 Head/face: Noted is contusion, that is superficial, of the Left parietal scalp. 12:00 Neuro: Orientation: is normal, to person, place, time \T\ situation. Mentation: is normal, Memory: is normal, Cranial nerves: grossly normal, Cerebellar function: is grossly normal, Motor: is normal, Sensation: is normal, Gait: is steady, at a normal pace. Vital Signs: 12:03 BP 108 / 54; Pulse 65; Resp 14 S; Temp 98.0(TE); Pulse Ox 100% on R/A; Weight 65.77 kg aa5 (R); Height 5 ft. 4 in. (162.56 cm) (R); 12:15 BP 127 / 66; Pulse 65; Resp 17 S; Pulse Ox 100% on R/A; kc6 13:41 BP 115 / 62; Pulse 70; Resp 16; Pulse Ox 99% on R/A; vg1 12:03 Body Mass Index 24.89 (65.77 kg, 162.56 cm) aa5 NIH Stroke Scale Scores: 12:00 NIHSS Score: 0 jh7 [place] Coma Score: 12:00 Eye Response: spontaneous(4). Verbal Response: oriented(5). Motor Response: obeys jh7 commands(6). Total: 15. 12:03 Eye Response: spontaneous(4). Verbal Response: oriented(5). Motor Response: obeys aa5 commands(6). Total: 15. MDM: 11:52 Patient medically screened. [facility] 13:05 Differential diagnosis: Contusion of Hematoma on Intracranial bleed- Concussion without jh7 LOC. Data reviewed: vital signs, nurses notes, lab test result(s), EKG, radiologic studies, CT scan. Independent interpretation of the following test(s) in the Emergency Department EKG: See my EKG interpretation above. Historians other than the Patient: Friend: . Counseling: I had a detailed discussion with the patient and/or guardian regarding: the historical points, exam findings, and any diagnostic results supporting the discharge/admit diagnosis, to return to the emergency department if symptoms worsen or persist or if there are any questions or concerns that arise at home. ED course: Patient remained hemodynamically stable throughout the ER visit. She had a normal neurological exam. Informed her of her test results and that she likely had a concussion. Advised to avoid staring at computer screens, increase p.o. fluid intake, and rest at home for the next couple days. She develops any new concerning symptoms, she may return to the ER for further eval.. 08/27 12:16 Order name: Basic Metabolic Panel [facility] 08/27 12:16 Order name: CBC with Diff [facility] 08/27 12:16 Order name: Troponin HS [facility] 08/27 12:37 Order name: CBC with Automated Diff; Complete Time: 13:01 [facility] 08/27 12:59 Order name: Basic Metabolic Panel; Complete Time: 13: [facility] 08/27 12:59 Order name: Troponin High Sensitivity; Complete Time: 13: [facility] 08/27 12:08 Order name: CT Head Brain wo Cont [facility] 08/27 12:16 Order name: EKG - Nurse/Tech; Complete Time: 12:18 [facility] 08/27 12:16 Order name: EKG; Complete Time: 12:17 [facility] 08/27 12:16 Order name: Cardiac monitoring; Complete Time: 12:17 [facility] 08/27 12:16 Order name: IV Saline Lock; Complete Time: 12:30 [facility] 08/27 12:16 Order name: Labs collected and sent; Complete Time: 12: [facility] 08/27 12:49 Order name: CT; Complete Time: 13: [facility] 08/27 12:16 Order name: O2 Per Protocol; Complete Time: 12:17 [facility] 08/27 12:16 Order name: O2 Sat Monitoring; Complete Time: 12:18 [facility] EC:00 Rate is 64 beats/min. Rhythm is regular. QRS [place] is Normal. MI interval is normal at [facility] 108 msec. QRS interval is normal at 88 msec. QT interval is normal at 434 msec. No Q waves. T waves are Normal. No ST changes noted. Clinical impression: Normal ECG. Administered Medications: 12:30 Drug: Zofran (Ondansetron) 4 mg Route: IVP; Site: right antecubital; kc6 13:30 Follow up: Response: No adverse reaction; Nausea is decreased 6 Disposition: 16:08 Co-signature as Attending Physician, Jose Rafael Pike MD I agree with the assessment and kdr plan of care. Disposition Summary: 08/27/22 13:10 Discharge Ordered Location: Home [facility] Problem: new [facility] Symptoms: have improved [facility] Condition: Stable [facility] Diagnosis - Concussion without loss of consciousness [facility] Followup: [facility] - With: Davian Hopson MD - When: 2 - 3 days - Reason: Recheck today's complaints Discharge Instructions: - Discharge Summary Sheet 7 - Concussion, Adult [facility] - Post-Concussion Syndrome [facility] Forms: - Medication Reconciliation Form [facility] - Thank You Letter [facility] Prescriptions: - ondansetron 4 mg Oral - take 4 milligrams by SUBLINGUAL route every 8 hours; 15 tablet; Refills: 0, jh7 Product Selection Permitted NIH Stroke Scale - NIH Stroke Score Date: 08/27/2022 Time: 12:00 Total Score = 0 1a. Level of Consciousness (LOC) - 0(Alert) 1b. Level of Consciousness (LOC) (Month \T\ Age) - 0(Both) 1c. LOC Commands (Open \T\ Closes Eyes/Thread Marker) - 0(Both) 2. Best Gaze (Lateral Gaze Paresis) - 0(Normal) 3. Visual Field Loss - 0(No visual loss) 4. Facial Palsy - 0(Normal) 5a. Left Arm: Motor (10-second hold) - 0(No drift) 5b. Right Arm: Motor (10-second hold) - 0(No drift) 6a. Left Leg: Motor (5-second hold - always test supine) - 0(No drift) 6b. Right Leg: Motor (5-second hold - always test supine) - 0(No drift) 7. Limb Ataxia (finger/nose \T\ heel/[place] - test with eyes open) - 0(Absent) 8. Sensory Loss (pinprick arms/legs/face) - 0(Normal) 9. Best Language: Aphasia (description/naming/reading) - 0(No aphasia) 10. Dysarthria (speech clarity - read or repeat words) - 0(Normal) 11. Extinction and Inattention (visual/tactile/auditory/spatial/personal) - 0(No abnormality) Initials: [facility] Signatures: Dispatcher [employer] EDMS Jose Rafael Pike MD MD [facility] Ifeoma Gupta, RN RN aa5 Shannen Arevalo FNP FLAT BED OPERATOR [facility] Vianney Brenner, DAVID RN kc6
[2022-08-27 14:03] VITALS: TEMP 98
[2022-08-27 14:05] VITALS: BP 115/62; O2SAT 99
--- NOTE | 2022-08-28 12:37 | EKG ---
Test Date: 2022-08-27 Test Time: 12:13:48 Rn Testing: SHELIA MEASUREMENT RESULTS: Intervals: Rate: 64 MO: 108 QRSD: 88 QT: 434 QTc: 447 [place]: P: 50 MO: 108 QRS: 69 T: 87 INTERPRETIVE STATEMENTS: Sinus rhythm with short MO Otherwise normal ECG Compared to ECG 04/13/2012 08:41:14 Short MO interval now present Electronically Signed On 08-28-22 12:35:35 [employer] MECHANIC by Brian Goodwin
== END 2022-08-27 13:42 | disposition home or self-care (01) ==
LOC: ER 11:45
DX: S06.0X0A Concussion without loss of consciousness, initial encounter (principal); R11.0 Nausea; E03.9 Hypothyroidism, unspecified; F32.A Depression, unspecified
CPT/HCPCS: 93005; 85025; 80048; 36415; 84484; 70450; 96374; 99284; J2405

== ENCOUNTER 2024-05-04 16:09 | Emergency (ER) | payer OTHER, MEDICARE ==
--- NOTE | 2024-05-04 17:22 | RAD REPORT ---
EXAMINATION: US RIGHT LOWER EXTREMITY VENOUS DOPPLER CLINICAL INDICATION: SWELLING RIGHT TECHNIQUE: Complete bilateral duplex sonography of the RIGHT lower extremity veins was performed. The examination included compression for vein patency, color Doppler imaging and flow augmentation in response to distal compression of the distal external iliac, common femoral, femoral, popliteal, tibi al, and great and small saphenous veins. COMPARISON: No prior exam. FINDINGS: Duplex sonography testing of the veins of the RIGHT lower extremity was performed. Color flow imaging shows all veins to be compressible with [id number] color filling. Pulsatile and phasic flow is present within all lower extremity deep and superficial veins examined. IMPRESSION: There is no deep vein or superficial vein thrombosis.
[2024-05-04 17:27] LABS: Absolute Basophils 0.1 K/uL (0-0.5); Absolute Eosinophils 0.2 K/uL (0-0.5); Absolute Lymphocytes (CBC) 1.4 K/uL (0.7-4.9); Absolute Monocytes 0.7 K/uL (0.1-1.3); Absolute Neutrophil 3.5 K/uL (1.8-8.0); Basophils % 1.2 % (0-1.3); Eosinophils % 3.9 % (0-4.4); Hematocrit 39.6 % (36.0-45.0); Hemoglobin 13.1 g/dL (12.0-15.0); MPV 8.4 fL (7.6-11.3); Monocytes % 12.2 % (3.3-12.3); Neutrophils % 58.7 % (41.7-73.7); Platelets 275 thou/uL (152-406); Red Cell Distribution Width 13.7 % (12.1-15.2)
[2024-05-04 17:31] LABS: Albumin 3.5 g/dL (3.4-5.0); Albumin/Globulin Ratio 1.2 (1.1-1.8); Bilirubin Total 0.4 mg/dL (0.2-1.0); Globulin 2.9 g/dL (2.3-3.5); Protein, Total 6.4 g/dL (6.4-8.2)
--- NOTE | 2024-05-04 17:53 | ER ---
Nurse's Notes [facility] Name: Bailey Patton Age: 68 yrs Sex: Female : 1955 Arrival Date: 05/04/2024 Time: 16:09 Bed 18 Private MD: Diagnosis: Pain in right leg Presentation: 05/04 16:24 Chief complaint: Patient states: she has been having pain and swelling in right leg. ap3 patient complains of pain that she rates to be a 6/10 on the pain scale at this time. Coronavirus screen: At this time, the client does not indicate any symptoms associated with coronavirus-19. Ebola Screen: No symptoms or risks identified at this time. Initial Sepsis Screen: Does the patient meet any 2 criteria? No. Patient's initial sepsis screen is negative. Does the patient have a suspected source of infection? No. Patient's initial sepsis screen is negative. Risk Assessment: Do you want to hurt yourself or someone else? Patient reports no desire to harm self or others. Onset of symptoms is unknown. 16:24 Method Of Arrival: Ambulatory ap3 16:24 Acuity: VI 3 ap3 Triage Assessment: 16:26 General: Appears in no apparent distress. Behavior is calm, cooperative, appropriate ap3 for age. Pain: Complains of pain in right leg Pain currently is 6 out of 10 on a pain scale. Neuro: Level of Consciousness is awake, alert, obeys commands, Oriented to person, place, time, situation, Appropriate for age Gait is steady, Speech is normal. Cardiovascular: Patient's skin is warm and dry. Respiratory: Airway is patent Respiratory effort is even, unlabored, Respiratory pattern is regular, symmetrical. Historical: - Allergies: 16:25 Azithromycin; ap3 - Home Meds: 17:10 estradiol transdermal [Active]; levothyroxine 75 mcg cap 1 cap once daily [Active]; tl4 lexapro 40mg [Active]; progesterone [Active]; Wellbutrin Oral [Active]; - PMHx: 16:25 depressive disorder; Hypothyroidism; mitral valve prolapse; ap3 - PSHx: 17:10 None; tl4 - Immunization history:: Client reports having NOT received the Covid vaccine. Flu vaccine is not up to date. - Infectious Disease History:: Denies. - Social history:: Smoking status: Patient denies any tobacco usage or history of. Screenin:26 Abuse screen: Denies threats or abuse. Nutritional screening: No deficits noted. ap3 Tuberculosis screening: No symptoms or risk factors identified. 17:09 [facility] ED Fall Risk Assessment (Adult) History of falling in the last 3 months, tl4 including since admission No falls in past 3 months (0 pts) Confusion or Disorientation No (0 pts) Intoxicated or Sedated No (0 pts) Impaired Gait No (0 pts) Mobility Assist Device Used No (0 pt) Altered Elimination No (0 pt) Score/Fall Risk Level 0 - 2 = Low Risk Oriented to surroundings, Maintained a safe environment, Educated pt \T\ family on fall prevention, incl call for assistance when getting out of bed, Assessed \T\ reinforced patient's understanding of fall precautions. Assessment: 17:04 General: Appears in no apparent distress. Behavior is calm, cooperative. Pain: tl4 Complains of pain in right leg. Neuro: Level of Consciousness is awake, alert, obeys commands, Oriented to person, place, time, situation. Cardiovascular: Capillary refill < 3 seconds Patient's skin is warm and dry. Respiratory: Airway is patent Respiratory effort is even, unlabored, Respiratory pattern is regular, symmetrical, Breath sounds are clear bilaterally. GI: No signs and/or symptoms were reported involving the gastrointestinal system. : No signs and/or symptoms were reported regarding the genitourinary system. EENT: No signs and/or symptoms were reported regarding the EENT system. Derm: No signs and/or symptoms reported regarding the dermatologic system. Musculoskeletal: Reports pain in right leg. Vital Signs: 16:24 BP 141 / 73; Pulse 74; Resp 17; Temp 98; Pulse Ox 100% ; Weight 65.77 kg; Height 5 ft. ap3 4 in. ; Pain 6/10; 17:07 BP 121 / 65; Pulse 75; Resp 18; Pulse Ox 99% on R/A; tl4 17:44 BP 118 / 66; Pulse 70; Resp 16; Pulse Ox 100% on R/A; tl4 18:03 BP 121 / 76; Pulse 73; Resp 18; Temp 98(O); Pulse Ox 99% on R/A; tl4 16:24 Body Mass Index 24.89 (65.77 kg, 162.56 cm) ap3 16:24 Pain Scale: Adult ap3 ED Course: 16:11 Patient arrived in ED. mr 16:13 Edgardo Jackson, [facility] 16:13 Jesse Yang MD is Attending Physician. dr5 16:25 Triage completed. ap3 16:27 Arm band placed on right wrist. ap3 16:27 Patient has correct armband on for positive identification. Provided Education on: use ap3 of call light. 16:52 Wilian Gayle, RN is Primary Nurse. tl4 17:03 D-Dimer Sent. tl4 17:03 CMP Sent. tl4 17:04 CBC with Manual Differential Sent. tl4 17:09 No provider procedures requiring assistance completed. Initial lab(s) drawn, by me, tl4 sent to lab. Inserted saline lock: 22 gauge in left antecubital area, using aseptic technique. Blood collected. Flushed with 10 mL NS. 17:18 Extremity Venous Uni Ltd US In Process Unspecified. EDMS 18:03 IV discontinued, intact, bleeding controlled, No redness/swelling at site. Pressure tl4 dressing applied. Administered Medications: No medications were administered Medication: 17:09 VIS not applicable for this client. tl4 Outcome: 17:52 Discharge ordered by . dr5 18:04 Discharged to home ambulatory, tl4 18:04 Condition: stable 18:04 Discharge instructions given to patient, Instructed on discharge instructions, follow up and referral plans. Demonstrated understanding of instructions, follow-up care, 18:04 Patient left the ED. tl4 Signatures: Dispatcher [employer] EDCO Radha Vela, Reg Reg Gabbie Faust RN RN ap3 Wilian Gayle, RN RN tl4 Edgardo Jackson FNP-C MANAGER CAREER-Cdr5
--- NOTE | 2024-05-04 17:53 | EDPHYS ---
Physician Documentation [facility] Name: Bailey Patton Age: 68 yrs Sex: Female : 1955 Arrival Date: 05/04/2024 Time: 16:09 Bed 18 Private MD: ED Physician Jesse Yang HPI: 05/04 17:53 This 68 yrs old Female presents to ER via Ambulatory with complaints of Leg dr5 Pain. 17:53 The patient presents with tenderness. The complaints affect the lateral aspect of right dr5 thigh, lateral aspect of right knee, lateral aspect of right calf and right ankle. The patient has been recently seen at an urgent care, last week. Patient is a 5-year-old female presenting with right lower leg pain. Patient was seen at outside facility last week with a positive D-dimer. Facility stated they did not have ultrasound available. Patient denies chest pain shortness of breath fever cough nausea vomiting diarrhea. Historical: - Allergies: 16:25 Azithromycin; ap3 - Home Meds: 17:10 estradiol transdermal [Active]; levothyroxine 75 mcg cap 1 cap once daily [Active]; tl4 lexapro 40mg [Active]; progesterone [Active]; Wellbutrin Oral [Active]; - PMHx: 16:25 depressive disorder; Hypothyroidism; mitral valve prolapse; ap3 - PSHx: 17:10 None; tl4 - Immunization history:: Client reports having NOT received the Covid vaccine. Flu vaccine is not up to date. - Infectious Disease History:: Denies. - Social history:: Smoking status: Patient denies any tobacco usage or history of. ROS: 17:54 Constitutional: as per hpi dr5 Exam: 17:54 Constitutional: This is a well developed, well nourished patient who is awake, alert, dr5 and in no acute distress. Head/Face: Normocephalic, atraumatic. ENT: Nares patent. No nasal discharge, no septal abnormalities noted. Tympanic membranes are normal and external auditory canals are clear. Oropharynx with no redness, swelling, or masses, exudates, or evidence of obstruction, uvula midline. Mucous membranes moist. Neck: Trachea midline, no thyromegaly or masses palpated, and no cervical lymphadenopathy. Supple, full range of motion without nuchal rigidity, or vertebral point tenderness. No Meningismus. Chest/axilla: Normal chest wall appearance and motion. Nontender with no deformity. No lesions are appreciated. Respiratory: Lungs have equal breath sounds bilaterally, clear to auscultation. No rales, rhonchi or wheezes noted. No increased work of breathing, no retractions or nasal flaring. Abdomen/GI: Soft, non-tender, non-distended Skin: Warm, dry with normal turgor. Normal color with no rashes, no lesions, and no evidence of cellulitis. Neuro: Awake and alert, GCS 15, oriented to person, place, time, and situation. Cranial nerves II-XII grossly intact. Motor strength 5/5 in all extremities. Sensory grossly intact. Cerebellar exam normal. Normal gait. 17:54 Musculoskeletal/extremity: Extremities: all appear grossly normal, with no appreciated pain with palpation, ROM: no acute changes, intact in all extremities, Circulation is intact in all extremities. Sensation intact. Vital Signs: 16:24 BP 141 / 73; Pulse 74; Resp 17; Temp 98; Pulse Ox 100% ; Weight 65.77 kg; Height 5 ft. ap3 4 in. ; Pain 6/10; 17:07 BP 121 / 65; Pulse 75; Resp 18; Pulse Ox 99% on R/A; tl4 17:44 BP 118 / 66; Pulse 70; Resp 16; Pulse Ox 100% on R/A; tl4 18:03 BP 121 / 76; Pulse 73; Resp 18; Temp 98(O); Pulse Ox 99% on R/A; tl4 16:24 Body Mass Index 24.89 (65.77 kg, 162.56 cm) ap3 16:24 Pain Scale: Adult ap3 MDM: 16:16 Medical Screening Exam initiated dr5 17:54 Differential diagnosis: tendonitis, DVT, Vasculitis. Data reviewed: vital signs, nurses dr5 notes, lab test result(s), radiologic studies, ultrasound. Consideration of Admission/Observation Escalation of care including admission/observation considered. Considered escalation of CT PE study if patient DVT and possible admission.. External Records Reviewed: Outpatient record: [facility] D-Dimer result. Care significantly affected by the following chronic conditions: Hypothyroidism, MVP, Depression. Care significantly affected by the following Social Determinants of Health: Poor access to healthcare and/or lack of insurance, Poor access to transportation. Counseling: I had a detailed discussion with the patient and/or guardian regarding the historical points, exam findings, and any diagnostic results supporting the discharge/admit diagnosis, lab results, radiology results, the need for outpatient follow up, for definitive care, a family practitioner, to return to the emergency department if symptoms worsen or persist or if there are any questions or concerns that arise at home, Printed out lab results and US results and handed to patient.. ED course: No evidence of DVT on US. Lab work discussed with patient.. 05/04 16:35 Order name: CBC with Manual Differential; Complete Time: 17:37 dr5 05/04 16:35 Order name: CMP; Complete Time: 17:33 dr5 05/04 16:35 Order name: D-Dimer; Complete Time: 17:20 dr5 05/04 16:35 Order name: Extremity Venous Uni Ltd US; Complete Time: 17:30 dr5 Administered Medications: No medications were administered Disposition Summary: 05/04/24 17:52 Discharge Ordered Notes: Location: Home dr5 Condition: Stable dr5 Diagnosis - Pain in right leg dr5 Followup: dr5 - With: Emergency Department - When: As needed - Reason: Worsening of condition Followup: dr5 - With: Private Physician - When: 1 - 2 days - Reason: Recheck today's complaints, Continuance of care, Re-evaluation by your physician Discharge Instructions: - Discharge Summary Sheet dr5 - Musculoskeletal Pain dr5 Forms: - Medication Reconciliation Form dr5 - Patient Portal Instructions dr5 - Leadership Thank You Letter dr5 Signatures: Dispatcher [employer] EDGabbie Landry RN RN ap3 Wilian Gayle RN RN tl4 Edgardo Jackson, POLARITY TESTER-C POLARITY TESTER-Cdr5 Corrections: (The following items were deleted from the chart) 16:35 16:35 CBC with Manual Differential+H.LAB.BRZ ordered. EDMS EDMS 16:35 16:35 COMPREHENSIVE METABOLIC PANEL+C.LAB.BRZ ordered. EDMS EDMS 16:35 16:35 D-DIMER+COAG.LAB.BRZ ordered. EDMS EDMS 16:35 16:35 Extremity Venous Uni Ltd+US.RAD.BRZ ordered. EDMS EDMS
[2024-05-04 23:35] VITALS: TEMP 98
[2024-05-04 23:39] VITALS: BP 121/76; O2SAT 99
== END 2024-05-04 18:04 | disposition home or self-care (01) ==
LOC: ER 16:09
DX: M79.604 Pain in right leg (principal); E03.9 Hypothyroidism, unspecified; I34.1 Nonrheumatic mitral (valve) prolapse; Z79.899 Other long term (current) drug therapy
CPT/HCPCS: 36415; 80053; 85025; 85379; 93971; 99284